=== PATIENT | male | born 1970 | race American Indian/Alaskan Native ===

== ENCOUNTER 2017-01-31 11:17 | Outpatient (CLI) | payer BC ==
--- NOTE | 2017-02-01 07:28 | Vascular Lab Report ---
MESENTERIC ARTERIAL DUPLEX Reason for exam: Mesenteric artery insufficiency Comments: The aorta is patent. Flow velocities are within normal limits. Minimal atherosclerotic change is identified. No aneurysmal dilatation is noted. The celiac artery is patent. Flow velocities elevated proximally. Mid celiac artery appears narrowed without significant velocity elevation. The superior mesenteric artery is patent. Flow velocities are normal. No evidence of obstruction is identified. 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 Clinical correlation recommended.
== END 2017-01-31 11:18 | disposition home or self-care (01) ==
LOC: VAS 11:17
PROVIDERS: ATTEND Surgery Vascular Surgery
DX: I77.4 Celiac artery compression syndrome (principal)
CPT/HCPCS: 93979